=== PATIENT | male | born 1960 | race Caucasian/White ===

== ENCOUNTER 2016-05-01 22:33 | Inpatient (IN) | payer MEDICARE ==
[~2016-05-01] VITALS: Ht 177.8 cm; Wt 109.9 kg
[~2016-05-01 22:33] MED LIST: AMOXIL-DPS500 MG PO; BENADRYL-DPS50 MG PO; COUGHTAB 400400 MG PO; DELTASONE DPS20 MG PO; DUONEB DPS3 ML IH; LEVAQUIN DPS750 MG PO; MS CONTIN DPS60 MG PO; PAXIL40 MG PO; PEPCID DPS20 MG PO; PROVENTIL HFA6.7 GM IH; ROBITUSSIN AC D30 ML PO; XANAX DPS1 MG PO; ZITHROMAX250 MG PO
--- NOTE | 2016-05-02 19:43 | ER ---
ADMIT: 05/01/2016 RM/LOC: ER [facility] MR#: [id number] [address] [facility] [place], [place] [address] [address] [place], [place] [id number] Emergency Room Report SEX: M AGE: 56 : 1960 DATE: 05/02/2016 CHIEF COMPLAINT: Shortness of breath. HISTORY OF PRESENT ILLNESS: The patient is a 56-year-old male with chronic pain, takes morphine and benzodiazepines. States he did not take more than he typically does. Denies any recent injury, fevers, chills, nausea, vomiting, or chest discomfort. States he is having difficulty breathing, exacerbation of his COPD. Hospitalized for COPD from March 20 through . PAST MEDICAL HISTORY: ALLERGIES: NONE. MEDICATIONS: Please see nurse's MAR. ILLNESSES: COPD, previous pneumonia, bipolar, PTSD, chronic low back pain. OPERATIONS: Appendectomy, T and A. SOCIAL HISTORY: Smokes 1 pack per day for over 40 years. No illicit drugs or alcohol. FAMILY HISTORY: Negative per chart review. REVIEW OF SYSTEMS: A 12-point review of systems negative for all other systems, illnesses, or operations except as outlined above. PHYSICAL EXAMINATION: VITAL SIGNS: Temp 97.7; pulse 80; respirations shallow anywhere from 6 to 12, requiring verbal stimulation at times to breathe; BP 140/81; SaO2 of 75% on room air, 96% on 4 L. GENERAL: Nontoxic, non-diaphoretic without jaundice or icterus. HEENT: Normocephalic. No evidence of epistaxis, rhinorrhea, or otorrhea. NECK: Supple without lymphadenopathy or thyromegaly. CHEST: Breath sounds equal, diminished with faint expiratory wheeze. HEART: Regular rate and rhythm without murmur, gallop, or edema. ABDOMEN: Soft, nontender, nondistended without mass or megaly. Bowel sounds hypoactive. EXTREMITIES: Left knee brace noted. No evidence of Homans sign, synovitis, or dermatitis. NEURO: EOMI. PERRLA. No evidence of drift, dysarthria, or ataxia. GAIT: Antalgic. MEDICAL DECISION MAKING: EKG shows sinus rhythm without ST-T or Q-wave change. Chest x-ray shows no acute findings. WBC 10.6, hemoglobin 11.6, lactic 1.5, CK 817, MB 8.2, troponin less than 0.015, BNP 152, alcohol 20 (drawn with isopropyl alcohol cleansing), INR 1.01. The patient responded well to BiPAP /, DuoNeb x2, Solu-Medrol 125 mg IV push, and magnesium 2 g IV piggyback. Discussed case with Dr. Silverio and Dr. Babin. Dr. Babin ADMIT: 05/01/2016 RM/LOC: [facility] MR#: [id number] [address] [facility] [address] [facility] [place], [place] [address] [facility] [address] [place] [address] Emergency Room Report SEX: M AGE: 56 : 1960 gave orders to nursing staff. Due to the patient's presentation, findings, and intervention, 60 minutes of critical care is warranted. DIAGNOSES: 1. Acute respiratory failure with hypoxemia. 2. Acute exacerbation of chronic obstructive pulmonary disease. 3. Chronic pain syndrome, on narcotics and benzodiazepines. RECOMMENDATION: Admit inpatient ICU for Dr. Silverio. ADMISSION/DISCHARGE CONDITION: Stable. CODE STATUS: The patient is a full code. Kevin Calvert MD/ jennifer JOB #: [id number] CC: Kevin Calvert MD, Attending Physician . [facility], Family Physician . [facility] Wilner Silverio MD
[2016-05-04] MEDS ORDERED: GEODON60 MG PO (13:41)
[2016-05-04] MEDS ORDERED: COREG DPS6.25 MG PO (13:41)
[2016-05-04] MEDS ORDERED: VITAMIN D1000 UNIT PO (13:41)
[2016-05-04] MEDS ORDERED: LIPITOR40 MG PO (13:42)
[2016-05-04] MEDS ORDERED: THERA1 EACH PO (13:42)
[2016-05-04] MEDS ORDERED: ASPIRIN EC81 MG PO (13:42)
[2016-05-04] MEDS ORDERED: SPIRIVA18 MCG IH (13:42)
[2016-05-04] MEDS ORDERED: SYMBICORT 80-10.2 GM IH (13:43)
[2016-05-04] MEDS ORDERED: PROAIR RESPICL90 MCG IH (13:43)
[2016-05-04] MEDS ORDERED: XANAX DPS0.5 MG PO (13:44)
[2016-05-04] MEDS ORDERED: MS CONTIN DPS30 MG PO (13:44)
--- NOTE | 2016-05-25 09:00 | HP ---
ADMIT: 05/01/2016 RM/LOC: [address] [facility] MR#: [id number] [address] [facility] [place], [place] [address] [address] [place] [address] History and Physical SEX: M AGE: 56 : 1960 DATE OF SERVICE: CHIEF COMPLAINT: Increased lethargy and hypoxia. HISTORY OF PRESENT ILLNESS: The patient is a 56-year-old male, who presents with worsening shortness of breath and lethargy throughout the day. He was less responsive, so his decided to bring him in to the ER. Prior to bringing him in, she checked an oxygen saturation on him and it was 79%. Otherwise, the patient's has stated that he had been feeling well otherwise this past week; however, he was admitted a month ago for pneumonia. The patient was requiring increased oxygen demands and was started on a BiPAP in the ER. He is very drowsy and is unable to really answer my questions, but he does wake to voice, so his answers most of my questions today. He had not had any fever or chills, any nausea, vomiting, or change in bowel movements or change in urination. No rashes. No headaches or blurry vision. No cough or chest pain. No palpitations. PAST MEDICAL HISTORY: Significant for COPD, bipolar, PTSD, chronic low back pain. PAST SURGICAL HISTORY: Includes tonsil and adenoidectomy as well as appendectomy. ALLERGIES: NO ALLERGIES. SOCIAL HISTORY: He is a smoker and he drinks alcohol occasionally. He is . FAMILY HISTORY: Heart disease, hypertension. They are unsure of any other mental health problems in the family. LABORATORY DATA: While in the ER, labs were done. The patient had a respiratory acidosis of 7.261 pH, pCO2 of 65.2, PO2 of 78. His white blood cell count was slightly elevated at 10.6, he is anemic at 11.6, platelets are normal at 274, INR was normal at 1.01, lactic acid was normal at 1.5. CMP was also normal except for a slight elevation in his AST at 42, creatinine was normal at 0.8, and he does have an anion gap which was 14. REVIEW OF SYSTEMS: We were unable to obtain due to the patient's drowsiness. PHYSICAL EXAMINATION: VITAL SIGNS: Temperature 96.5, 74 pulse, 12 respirations, blood pressure is 121/83, 95% on 4 L of BiPAP. GENERAL: He is in mild distress, increased work of breathing. He is alert when talked to, but does not really respond with the words, nodding his head. HEENT: Normocephalic, atraumatic. Moist mucous membranes. Extraocular muscles are intact. BiPAP is in place. HEART: Regular rate and rhythm. No murmur appreciated. LUNGS: I did not appreciate any wheezing or rhonchi at this time. He does have increased work of breathing. ADMIT: 05/01/2016 RM/LOC: 309 [facility] MR#: [id number] [address] [facility] [address] [place] [id number] [facility] [address] [place] [address] History and Physical SEX: M AGE: 56 : 1960 GI: He is obese, has some positive bowel sounds. EXTREMITIES: Showed no signs of edema bilaterally. ASSESSMENT AND PLAN: 1. Acute respiratory Failure with Hypoxemiaq 2. Respiratory Depression secondary to medications. 3. Possible COPD exacerbation. 4. Bipolar Disorder/PTSD 5. Chronic Pain This is a 56-year-old male, who came in with acute respiratory failure with hypoxemia requiring BiPAP. With cause of the acute respiratory failure, we will do workup for possible sepsis as well as pneumonia and a urinary tract infection. We will also treat this as a chronic obstructive pulmonary disease exacerbation at this time due to his past medical history, moreover, he had a pneumonia in March and today's chest x-ray was of poor quality, so we will repeat chest x- ray in the morning to re-ensure we do not have another pneumonia developing. We will continue the patient's home medications for his bipolar and post- traumatic stress disorder. The patient was admitted to the ICU, was started on new BiPAP. We will get labs in the morning, intravenous antibiotics and given some IV steroids at this time. Emily Babin MD Resident / Wilner Silverio MD / [email or web address] JOB #: [id number] CC: Wilner Silvreio, Attending Physician . [facility], [facility] Physician
--- NOTE | 2016-06-22 17:44 | DS ---
ADMIT: 05/01/2016 RM/LOC: 432 [facility] MR#: [id number] [address] [address] [place] [address] General Discharge Summary SEX: M AGE: 56 : 1960 ADMISSION DATE: 05/01/2016 DISCHARGE DATE: 05/03/2016 FINAL DIAGNOSES: Include: 1. Acute respiratory failure with CO2 retention secondary to chronic pain use and narcotic overdose with respiratory suppression. 2. Chronic obstructive pulmonary disease exacerbation. 3. Bipolar disorder. 4. Posttraumatic stress disorder. 5. Chronic pain syndrome. PROCEDURES: Include detoxification of narcotic overdose. Please see his hospital record for further details. Wilner Silverio MD/ jennifer JOB #: [id number] CC: Wilner Silverio MD, Attending Physician [facility] Physician, Family Physician
== END 2016-05-03 11:20 | disposition home or self-care (01) | DRG 917 ==
LOC: ER 22:33 → 3ICU 23:50 → 4PCU 23:50
PROVIDERS: ADMIT Family Medicine
DX: T42.4X1A Poisoning by benzodiazepines, accidental (unintentional), initial encounter (principal); J96.01 Acute respiratory failure with hypoxia; J44.1 Chronic obstructive pulmonary disease with (acute) exacerbation; E87.2 Acidosis; Z68.35 Body mass index [BMI] 35.0-35.9, adult; F31.9 Bipolar disorder, unspecified; F43.10 Post-traumatic stress disorder, unspecified; M54.9 Dorsalgia, unspecified; F17.210 Nicotine dependence, cigarettes, uncomplicated; G89.4 Chronic pain syndrome; E66.9 Obesity, unspecified

== ENCOUNTER → 2016-06-12 | Outpatient (CLI) | payer MEDICARE ==
[~2016-06-12] MED LIST changes: +ASPIRIN EC81 MG PO; +COREG DPS6.25 MG PO; +GEODON60 MG PO; +LIPITOR40 MG PO; +MS CONTIN DPS30 MG PO; +PROAIR RESPICL90 MCG IH; +SPIRIVA18 MCG IH; +SYMBICORT 80-10.2 GM IH; +THERA1 EACH PO; +VITAMIN D1000 UNIT PO; +XANAX DPS0.5 MG PO
== END | disposition home or self-care (01) ==
LOC: RAD.S 13:20
DX: N62 Hypertrophy of breast (principal)